=== PATIENT | male | born 1950 | race Two or more races ===

== ENCOUNTER 2019-02-22 18:43 | Inpatient (IN) | payer MEDICARE, MEDICAID ==
[~2019-02-22] VITALS: Ht 129.5 cm; Wt 52.2 kg
[2019-02-22 10:15] VITALS: BP 149/88
[2019-02-22] MEDS ORDERED: METO50TA16 PO (19:38)
[2019-02-22] MEDS ORDERED: ATORVASTATIN 20 MG TABLET (19:38)
[2019-02-22] MEDS ORDERED: CLOP75TA15 PO (19:38)
[2019-02-22] MEDS ORDERED: LISINOPRIL HCTZ (19:38)
[2019-02-22] MEDS ORDERED: COMBIGAN (19:38)
[2019-02-22] MEDS ORDERED: CLOPIDOGREL 75 MG TABLET (19:38)
[2019-02-22] MEDS ORDERED: JANUMET (19:38)
[2019-02-22] MEDS ORDERED: FARXIGA 10 MG (19:38)
[2019-02-22] MEDS ORDERED: LUMIGAN 0.01% EYE DROPS (19:38)
--- NOTE | 2019-02-22 19:53 | NUR ---
PT A/OX4, BIB FAMILY, C/O DIARRHEA X 4 DAYS. VS WNL. NAD AT THIS TIME. PER FAMILY'S REPORT, PT HAS NOT BEEN EATING OR DRINKING FOR "SEVERAL DAYS". PT DENIES PAIN, C/P, SOB, DIZZINESS, HEADACHE.
--- NOTE | 2019-02-22 19:55 | NUR ---
GERSON LYNN AT BEDSIDE FOR MSE.
[2019-02-22] MEDS ORDERED: IV NORMAL SALINE 1000 ML BAG IV ONE (20:00)
[2019-02-22 20:23] LABS: CREATININE 1.2 mg/dL (0.6-1.3); POTASSIUM 3.8 mmol/L (3.5-5.1)
[2019-02-22 20:24] LABS: BASOPHILS % (AUTO) 0.5 % (0.0-2.0); EOSINOPHILS # (AUTO) 0.2 K/uL (0.0-0.7); EOSINOPHILS % (AUTO) 2.1 % (0.0-7.0); HEMATOCRIT 44.3 % (36.7-47.1); HEMOGLOBIN 14.7 g/dL (12.5-16.3); LYMPHOCYTES # (AUTO) 3.1 K/uL (20.0-40.0); LYMPHOCYTES % (AUTO) 32.8 % (20.5-51.5); MEAN CORPUSCULAR HEMOGLOBIN 28.7 uug (23.8-33.4); MEAN CORPUSCULAR HGB CONC 33 g/dL (32.5-36.3); MEAN CORPUSCULAR VOLUME 86.7 fL (73.0-96.2); MONOCYTES # (AUTO) 0.5 K/uL (2.0-10.0); MONOCYTES % (AUTO) 5.5 % (0.0-11.0); NEUTROPHILS # (AUTO) 5.7 K/uL (1.8-8.9); NEUTROPHILS % (AUTO) 59.1 % (38.5-71.5); PLATELET COUNT (AUTO) 85 K/uL (152-348); RED BLOOD CELL COUNT(AUTO) 5.11 MIL/uL (4.06-5.63); WHITE BLOOD COUNT (AUTO) 9.6 K/uL (3.6-10.2)
[2019-02-22 20:29] LABS: BILIRUBIN,DIRECT 0.1 mg/dL (0.0-0.2); BILIRUBIN,TOTAL 0.7 mg/dL (0.2-1.0); TOTAL PROTEIN, SERUM 7.3 g/dL (6.4-8.2)
[2019-02-22] MEDS ORDERED: INSULIN REGULAR, HUMAN 300 UNIT/3 ML VIAL IV ONE (20:30)
--- NOTE | 2019-02-22 21:46 | NUR ---
admitting report given to RUSSELL Herman.
--- NOTE | 2019-02-22 21:56 | NUR ---
Pt. 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
--- NOTE | 2019-02-22 22:15 | NUR ---
Received patient awake in bed, alert and oriented x 4, Emirati speaking only. Patient is legally blind, both eyes. Transferred to bed safely, placed tele monitor on patient. Ensured safety and comfort. With help of Emirati speaking DIRECTOR OF QUALITY IMPROVEMENT, oriented patient to unit rules. Will try to get a call light appropriate for patient condition. Will continue to monitor.
[2019-02-22] MEDS ORDERED: HYDROCODONE/APAP 5-325MG TABLET PO PRN (22:30)
[2019-02-22] MEDS ORDERED: ENOXAPARIN SODIUM 40 MG/0.4 ML DISP.SYRIN SQ SCH (22:30)
[2019-02-22] MEDS ORDERED: MAGNESIUM HYDROXIDE 30 ML LIQUID UDC PO PRN (22:30)
[2019-02-22] MEDS ORDERED: ACETAMINOPHEN 325 MG TABLET PO PRN (22:30)
[2019-02-22] MEDS ORDERED: ONDANSETRON 4 MG/2 ML VIAL IV PRN (22:30)
[2019-02-22] MEDS ORDERED: DEXTROSE 50% 50 ML DISP.SYRIN IV PRN (22:30)
[2019-02-22] MEDS ORDERED: Z GUARD REMEDY PASTE 57 GM TUBE TOP PRN (22:30)
[2019-02-23 00:32] VITALS: BP 148/82
[2019-02-23 04:16] VITALS: BP 147/88
--- NOTE | 2019-02-23 05:42 | NUR ---
Patient slept intermittently throughout the shift. No recurrence of pain. No other complaints made. Attended all needs. Ensured safety and comfort.
[2019-02-23 05:52] LABS: BASOPHILS # (AUTO) 0.1 K/uL (0.0-8.0); BASOPHILS % (AUTO) 1.2 % (0.0-2.0); EOSINOPHILS # (AUTO) 0.2 K/uL (0.0-0.7); EOSINOPHILS % (AUTO) 2.7 % (0.0-7.0); HEMATOCRIT 41.3 % (36.7-47.1); HEMOGLOBIN 13.8 g/dL (12.5-16.3); LYMPHOCYTES % (AUTO) 35.2 % (20.5-51.5); MEAN CORPUSCULAR HEMOGLOBIN 28.7 uug (23.8-33.4); MEAN CORPUSCULAR HGB CONC 33 g/dL (32.5-36.3); MEAN CORPUSCULAR VOLUME 86.2 fL (73.0-96.2); MONOCYTES # (AUTO) 0.5 K/uL (2.0-10.0); MONOCYTES % (AUTO) 5.6 % (0.0-11.0); NEUTROPHILS # (AUTO) 4.7 K/uL (1.8-8.9); NEUTROPHILS % (AUTO) 55.3 % (38.5-71.5); PLATELET COUNT (AUTO) 79 K/uL (152-348); RED BLOOD CELL COUNT(AUTO) 4.79 MIL/uL (4.06-5.63); WHITE BLOOD COUNT (AUTO) 8.5 K/uL (3.6-10.2)
[2019-02-23 06:19] LABS: THYROID STIMULATING HORMONE 0.512 mIU/mL (0.358-3.740)
[2019-02-23] MEDS: BLOOD SUGAR DIAGNOSTIC 1 EACH STRIP VI SCH ×4 (06:30→21:06)
[2019-02-23 06:37] LABS: MAGNESIUM 1.5 mg/dL (1.8-2.4); PHOSPHOROUS 2.6 mg/dL (2.5-4.9); POTASSIUM 3.4 mmol/L (3.5-5.1)
--- NOTE | 2019-02-23 07:10 | NUR ---
RECEIVED PATIENT ALERT AND ORIENTED X3 WITH NO SOB AND NO C/O PAIN AT THIS TIME. IV INTACT AND PATENT. SAFETY AND COMFORT PROVIDED AT ALL TIMES. WILL CONTINUE TREATMENT PLAN.
[2019-02-23 07:44] LABS: LYMPHOCYTES % (MANUAL) 38 % (20-40); NEUTROPHILS % (MANUAL) 54 % (42-75)
[2019-02-23 07:45] LABS: EOSINOPHILS % (MANUAL) 3 % (0-8); MONOCYTES % (MANUAL) 5 % (2-10)
[2019-02-23] MEDS: INSULIN REGULAR, HUMAN 300 UNIT/3 ML VIAL SQ PRN ×4 (08:11→21:08)
[2019-02-23] MEDS: LISINOPRIL 10 MG TABLET PO SCH (08:20)
[2019-02-23] MEDS: METOPROLOL TARTRATE 50 MG TABLET PO SCH ×2 (08:20→21:02)
[2019-02-23] MEDS ORDERED: CLOPIDOGREL 75 MG TABLET PO SCH (09:00)
[2019-02-23] MEDS ORDERED: POTASSIUM CHLORIDE 20 MEQ TAB.PRT.SR PO ONE (10:45)
[2019-02-23] MEDS: MAGNESIUM SULFATE/D5W 100 ML IV SCH ×2 (10:46→11:51)
[2019-02-23] MEDS: CLOPIDOGREL 75 MG TABLET PO SCH (11:51)
[2019-02-23 12:00] VITALS: BP 102/63
[2019-02-23 16:56] VITALS: BP 99/63
--- NOTE | 2019-02-23 18:27 | NUR ---
PATIENT ALERT AND ORIENTED X3 WITH NO SOB AND NO C/O PAIN AT THIS TIME. PATIENT LEGALLY BLIND ON HIS RIGHT EYE, AND BLURRED VISION ON HIS LEFT EYE. PATIENT IS VERY COOPERATIVE WITH CARE AND VERY PLEASANT. IV INTACT AND PATENT. SAFETY AND COMFORT PROVIDED AT ALL TIMES. WILL CONTINUE TREATMENT PLAN.
[2019-02-23 20:04] VITALS: BP 142/84
[2019-02-23 20:40] LABS: *BILIRUBIN,URIN NEGATIVE (NEGATIVE); *BLOOD, URINE 1+ (NEGATIVE); *CLARITY,URINE SLIGHTLY CLOUDY (CLEAR); *COLOR,URINE YELLOW (YELLOW); *KETONES,URINE NEGATIVE (NEGATIVE); *UROBILINOGEN,URINE 0.2 E.U./dl (NORMAL); LEUKOCYTE ESTERASE ,URINE NEGATIVE (NEGATIVE); NITRITE, URINE NEGATIVE (NEGATIVE); PH,URINE 5.5 (5.0-8.0)
[2019-02-23 20:41] LABS: UGLUCOSE 3+ (NEGATIVE)
[2019-02-23 20:42] LABS: BACTERIA,URINE FEW /HPF (NONE SEEN); SQUAMOUS EPITHELIAL CELL,UR FEW /HPF (NONE SEEN); YEAST,URINE FEW /HPF (NONE SEEN)
[2019-02-23] MEDS: ATORVASTATIN 20 MG TABLET PO SCH (21:02)
[2019-02-24 00:05] VITALS: BP 130/62
[2019-02-24 04:00] VITALS: BP 141/86
--- NOTE | 2019-02-24 05:33 | NUR ---
Patient slept intermittently throughout the shift. No other complaints made. Stool sample sent to lab. Attended all needs. Ensured safety and comfort.
[2019-02-24] MEDS: BLOOD SUGAR DIAGNOSTIC 1 EACH STRIP VI SCH ×4 (06:33→20:41)
[2019-02-24 07:01] LABS: CREATININE 1.3 mg/dL (0.6-1.3); MAGNESIUM 1.8 mg/dL (1.8-2.4); PHOSPHOROUS 2.7 mg/dL (2.5-4.9); POTASSIUM 3.3 mmol/L (3.5-5.1)
[2019-02-24 07:22] LABS: BASOPHILS # (AUTO) 0.1 K/uL (0.0-8.0); BASOPHILS % (AUTO) 0.8 % (0.0-2.0); EOSINOPHILS # (AUTO) 0.2 K/uL (0.0-0.7); EOSINOPHILS % (AUTO) 2.4 % (0.0-7.0); HEMOGLOBIN 14.7 g/dL (12.5-16.3); LYMPHOCYTES % (AUTO) 27.8 % (20.5-51.5); MEAN CORPUSCULAR HEMOGLOBIN 28.9 uug (23.8-33.4); MEAN CORPUSCULAR HGB CONC 33 g/dL (32.5-36.3); MEAN CORPUSCULAR VOLUME 86.5 fL (73.0-96.2); MONOCYTES # (AUTO) 0.4 K/uL (2.0-10.0); MONOCYTES % (AUTO) 6.2 % (0.0-11.0); NEUTROPHILS # (AUTO) 4.5 K/uL (1.8-8.9); NEUTROPHILS % (AUTO) 62.8 % (38.5-71.5); RED BLOOD CELL COUNT(AUTO) 5.08 MIL/uL (4.06-5.63); WHITE BLOOD COUNT (AUTO) 7.1 K/uL (3.6-10.2)
[2019-02-24] MEDS: LISINOPRIL 10 MG TABLET PO SCH (08:49)
[2019-02-24] MEDS: METOPROLOL TARTRATE 50 MG TABLET PO SCH ×2 (08:49→20:29)
[2019-02-24] MEDS: CLOPIDOGREL 75 MG TABLET PO SCH (08:50)
[2019-02-24] MEDS: INSULIN REGULAR, HUMAN 300 UNIT/3 ML VIAL SQ PRN ×4 (08:52→20:47)
[2019-02-24] MEDS ORDERED: POTASSIUM CHLORIDE 20 MEQ TAB.PRT.SR PO ONE (10:30)
[2019-02-24 10:37] LABS: PLATELET COUNT (AUTO) 87 K/uL (152-348)
[2019-02-24 10:49] LABS: BASOPHILS % (MANUAL) 2 % (0-2); EOSINOPHILS % (MANUAL) 2 % (0-8); LYMPHOCYTES % (MANUAL) 28 % (20-40); MONOCYTES % (MANUAL) 6 % (2-10); NEUTROPHILS % (MANUAL) 62 % (42-75)
[2019-02-24 11:40] VITALS: BP 131/81
[2019-02-24 16:00] VITALS: BP 102/68
--- NOTE | 2019-02-24 17:41 | NUR ---
End of shift chart check done, will endorse care to oncoming shift. Patient alert and oriented to self only, beninese speaking. On safety person sinus rhythm. Potassium replaced today, 3.3. Swallow evaluation done today, please refer to speech therapist note. CDIFF results returned negative. Fall precautions in place.
--- NOTE | 2019-02-24 19:15 | NUR ---
PATIENT ALERT SPEAK [place] BUT UNDERSTAND SOME [place]. PATIENT ON TELE MONITOR SINUS RHYTHM AT THIS TIME. NO COMPLAIN OF PAIN NOR DISCOMFORT. CONT TO MONITOR.
[2019-02-24] MEDS: ATORVASTATIN 20 MG TABLET PO SCH (20:28)
[2019-02-24 20:45] VITALS: BP 124/79
[2019-02-25 00:05] VITALS: BP 125/88
[2019-02-25 04:00] VITALS: BP 126/74
[2019-02-25 05:41] LABS: BASOPHILS # (AUTO) 0.1 K/uL (0.0-8.0); EOSINOPHILS # (AUTO) 0.2 K/uL (0.0-0.7); HEMATOCRIT 43.9 % (36.7-47.1)
[2019-02-25 06:00] LABS: CREATININE 1.2 mg/dL (0.6-1.3); POTASSIUM 3.5 mmol/L (3.5-5.1)
[2019-02-25] MEDS: BLOOD SUGAR DIAGNOSTIC 1 EACH STRIP VI SCH ×2 (06:30→11:41)
--- NOTE | 2019-02-25 06:54 | NUR ---
PATIENT SLEPT MOST PART OF THE NIGHT. TELE MONITOR SINUS RHYTHM AT THIS TIME. NO COMPLAIN OF PAIN. PATIENT HAS NO EPISODE OF DIARRHEA NOTED. CONT TO MONITOR.
--- NOTE | 2019-02-25 07:10 | NUR ---
RECEIVED PATIENT IN BED RESTING COMFORTABLY , WITH NO S/S OF ACUTE DISTRESS NOTED, NO C/O PAIN AT THIS TIME. PROVIDE SAFETY AND COMFORT AT ALL TIMES. WILL CONTINUE TO MONITOR AND CONTINUE TREATMENT PLAN.
[2019-02-25 07:16] LABS: BASOPHILS % (AUTO) 0.9 % (0.0-2.0); EOSINOPHILS % (AUTO) 2.5 % (0.0-7.0); HEMOGLOBIN 14.6 g/dL (12.5-16.3); LYMPHOCYTES # (AUTO) 3.2 K/uL (20.0-40.0); LYMPHOCYTES % (AUTO) 39.9 % (20.5-51.5); MEAN CORPUSCULAR HGB CONC 33 g/dL (32.5-36.3); MEAN CORPUSCULAR VOLUME 87.5 fL (73.0-96.2); MONOCYTES # (AUTO) 0.5 K/uL (2.0-10.0); MONOCYTES % (AUTO) 6.6 % (0.0-11.0); NEUTROPHILS # (AUTO) 4.1 K/uL (1.8-8.9); NEUTROPHILS % (AUTO) 50.1 % (38.5-71.5); PLATELET COUNT (AUTO) 85 K/uL (152-348); RED BLOOD CELL COUNT(AUTO) 5.02 MIL/uL (4.06-5.63); WHITE BLOOD COUNT (AUTO) 8.1 K/uL (3.6-10.2)
[2019-02-25 08:00] LABS: EOSINOPHILS % (MANUAL) 2 % (0-8); LYMPHOCYTES % (MANUAL) 41 % (20-40); MONOCYTES % (MANUAL) 3 % (2-10); NEUTROPHILS % (MANUAL) 54 % (42-75)
[2019-02-25] MEDS: LISINOPRIL 10 MG TABLET PO SCH (09:00)
[2019-02-25] MEDS: METOPROLOL TARTRATE 50 MG TABLET PO SCH (09:00)
[2019-02-25] MEDS: CLOPIDOGREL 75 MG TABLET PO SCH (09:35)
[2019-02-25 11:30] VITALS: BP 108/61
[2019-02-25] MEDS: INSULIN REGULAR, HUMAN 300 UNIT/3 ML VIAL SQ PRN (12:22)
[2019-02-25] MEDS ORDERED: INSU100V28 SQ (13:41)
[2019-02-25] MEDS ORDERED: DEXT50DI8 IV (13:41)
[2019-02-25] MEDS ORDERED: Blood Sugar Diagnostic VI (13:41)
--- NOTE | 2019-02-25 14:58 | NUR ---
PATIENT DISCHARGE TO HOME VIA PRIVATE CAR WITH [place], DISCHARGE INSTRUCTION GIVEN AND PRESCRIBE MEDICATIONS EXPLAIN TO PATIENT AND FAMILY. IV AND ID BAND REMOVED, BELONGINGS ACCOUNTED FOR AND SIGNED, QUESTIONS AND CONCERNS ADDRESSED. NO SOB AND NIO C/O PAIN NOTED AT THIS TIME. PATIENT ESCORTED AND ASSISTED SAFELY TO THEIR CAR.
== END 2019-02-25 14:45 | disposition home or self-care (01) | DRG 392 ==
LOC: ER 18:45 → TELE3 21:57 → MEDSURG3 02-25 14:37
PROVIDERS: ADMIT Nurse Practitioner Acute Care; ATTEND Nurse Practitioner Acute Care
DX: A08.4 Viral intestinal infection, unspecified (principal); E44.1 Mild protein-calorie malnutrition; E11.65 Type 2 diabetes mellitus with hyperglycemia; E11.51 Type 2 diabetes mellitus with diabetic peripheral angiopathy without gangrene; E78.5 Hyperlipidemia, unspecified; H54.61 Unqualified visual loss, right eye, normal vision left eye; F03.90 Unspecified dementia, unspecified severity, without behavioral disturbance, psychotic disturbance, mood disturbance, and anxiety; D69.6 Thrombocytopenia, unspecified; Z89.611 Acquired absence of right leg above knee; Z79.82 Long term (current) use of aspirin; Z79.84 Long term (current) use of oral hypoglycemic drugs; Z89.512 Acquired absence of left leg below knee; Z79.02 Long term (current) use of antithrombotics/antiplatelets
CPT/HCPCS: 36415; 71045; 83605; 83690; 83735; 84100; 84443; 85025; 87040; 87086; 92526; 92610; 93005; A4663; G0378; J1815; J3475; J7030; J7040